=== PATIENT | female | born 1990 | race Caucasian/White ===

== ENCOUNTER 2018-07-06 11:59 | Emergency (ER) | END 2018-07-06 14:49 | disposition home or self-care (01) ==

== ENCOUNTER 2019-02-04 06:00 | Inpatient (IN) | payer OTHER ==
[~2019-02-04] VITALS: Ht 160 cm; Wt 128.0 kg
[~2019-02-04 06:00] MED LIST: ACET500C5 PO; HYDR250V5 IM; PREN-29 PO; PYRI25TA3 PO
[2019-02-04 06:27] VITALS: Ht 160 cm; Wt 128.0 kg
[2019-02-04 06:28] VITALS: BP 126/66; PULSE 89; RESP 18
[2019-02-04] MEDS ORDERED: CARBOPROST 250 MCG INJ IM PRN (06:30)
[2019-02-04] MEDS ORDERED: OXYTOCIN 30 UNITS/LR 500 ML IV PRN (06:30)
[2019-02-04] MEDS ORDERED: MISOPROSTOL 200 MCG TAB PR PRN ×2 (06:30→09:00)
[2019-02-04] MEDS ORDERED: CEFAZOLIN 3 GM in DEXTROSE 5% 100 ML IV ONE (06:30)
[2019-02-04] MEDS ORDERED: METHYLERGONOVINE 0.2 MG INJ IM PRN (06:30)
[2019-02-04] MEDS ORDERED: EPHEDrine 25 MG/5 ML SYG ONE (07:00)
[2019-02-04] MEDS ORDERED: morphine SULFATE/PF (10 MG/10 ML) INJ ONE (08:37)
[2019-02-04] MEDS ORDERED: LACTATED RINGER'S 1,000 ML IV SCH (08:39)
--- NOTE | 2019-02-04 08:39 | HP ---
Date/Time of Note Date/Time of Note DATE: 02/04/19 TIME: 08:30 OB - History Hx of Present Free Text/Dictation 28 YO with EDC 02/12/2019 with history of previous delivery, who desires to have repeat delivery and Permanent sterilization. I discussed with the patient the risks, benefits, indications, and alternatives of procedure including but not limited to risks of infection, bleeding, damage to other organs, bowel, bladder, hernia formation, scar formation, possibility of blood transfusion, possible need for emergency hysterectomy, as well as the fact that tubal ligation may fail and there is 1 to 2% risk of failure over lifetime of tubal ligations and the fact that tubal ligation is permanent and irreversible. She was allowed to ask questions. All her questions were answere d. Informed consent has been obtained. Care: None Ultrasounds: Normal mid trimester US Obstetrical Complications: None Medical Complications: None Past Family/Social History * Past Medical, Surgical, Family and Obstetric Histories reviewed from chart. OB Admission Exam Vital Signs Vital Signs Vital Signs Date Temp Pulse Resp B/P (MAP) Pulse Ox O2 O2 Flow FiO2 Time Delivery Rate 02/04/19 97.7 89 18 126/66 Room Air 06:28 (86) Physical Exam HEENT: WNL Heart: Rhythm Normal Lungs: Clear, Equal Abdomen: WNL Extremities: Normal Reflexes: Normal Last 72 hours Lab Results CBC & BMP 02/04/19 07:15 OB Assessment/Plan Other Assessment: IUP at 39 weeks H/o C/S x 3 Desires permanent sterilization Other plan: repeat c/s and bilateral salpingectomies EMILEE LYONS MD February 04, 2019 08:39
[2019-02-04] MEDS ORDERED: ONDANSETRON 4 MG INJ ONE (08:51)
[2019-02-04] MEDS ORDERED: LANOLIN HPA 1 PKT TOP PRN (09:00)
[2019-02-04] MEDS ORDERED: NA PHOSPHATE/BIPHOS 133 ML ENEMA PR PRN (09:00)
[2019-02-04] MEDS ORDERED: HYDROmorphONE 4 MG TAB PO PRN (09:00)
[2019-02-04] MEDS ORDERED: OXYTOCIN 10 UNIT INJ ONE ×2 (09:14→09:29)
[2019-02-04] MEDS ORDERED: MIDAZOLAM 1 MG/ML 2 ML INJ ONE (09:15)
--- NOTE | 2019-02-04 10:10 | PREAC ---
Date/Time of Note Date/Time of Note DATE: 02/04/19 TIME: 10:08 Anesthesia Eval and Record Evaluation Time Pre-Procedure Interview DATE: 02/04/19 TIME: 08:16 Age 28 Sex female NPO: 8 hrs Preoperative diagnosis iup @ 38 wks., , contractions, requests sterilization Planned procedure repeat c/s, btl Past Medical History Past Medical History: Includes : : (5), Para: (3), Gestational age: (38 wks.) Surgery & Anesthesia Issues No known issue Meds Anticoagulation: No Beta Sriram within 24 hr: No Reason Beta Sriram not given: Pt. not on B-Sriram Active Scripts Acetaminophen* (Tylophen*) 500 Mg Capsule, 1 CAP PO Q6H PRN for PAIN AND OR ELEVATED TEMP, #20 CAP Prov:CASANDRA MASTERS PA-C 07/06/18 Reported Medications Hydroxyprogesterone Caproate (Latisha) 250 Mg/1 Ml Vial, 250 MG IM, VIAL 04/05/15 Pyridoxine Hcl* (Vitamin B-6*) 25 Mg Tablet, 25 MG PO DAILY, TAB 04/05/15 Vit-Fe Fumarate-FA* (Danish Tablet*) 1 Tab Tablet, 1 TAB PO DA TONNY, TAB 04/05/15 Current Medications Oxytocin/Lactated Ringer's 500 ml @ 0 mls/hr ONCE PRN IV .VAGINAL BLEEDING; Start 02/04/19 at 06:30 Methylergonovine Maleate (Methergine) 0.2 mg ONCE PRN IM .VAGINAL BLEEDING; Start 02/04/19 at 06:30 Carboprost Tromethamine (Hemabate) 250 mcg ONCE PRN IM .VAGINAL BLEEDING; Start 02/04/19 at 06:30 Lactated Ringer's 1,000 ml @ 125 mls/hr Q8H IV ; Start 02/04/19 at 08:39; Stop 02/04/19 at 12:38 Ibuprofen (Motrin) 600 mg Q6 PO ; Start 02/04/19 at 12:00 Simethicone (Mylicon) 160 mg Q8H PRN PO .GAS; Start 02/04/19 at 09:00 Senna/Docusate Sodium (Senokot-S) 1 tab BID PO ; Start 02/04/19 at 09:00 Sodium Biphosphate/ Sodium Phosphate (Fleet Enema) 133 ml DAILY PRN IA .CONSTIPATION; Start 02/04/19 at 09:00 Lanolin (Lanolin Hpa) 1 applic BEDSIDE MEDICATION PRN TOP .NIPPLES; Start 02/04/19 at 09:00 Diphtheria/ Tetanus/Acell Pertussis (Adacel) 0.5 ml ONCE ONCE IM* ; Start 02/07/19 at 09:00; Stop 02/07/19 at 09:01 Measles/Mumps/ Rubella Vaccine Live (Mmr Ii Vaccine) 0.5 ml ONCE ONCE SC* ; Start 02/07/19 at 09:00; Stop 02/07/19 at 09:01 Misoprostol (Cytotec) 1,000 mcg ONCE PRN IA .VAGINAL BLEEDING; Start 02/04/19 at 09:00 Hydromorphone HCl (Dilaudid) 4 mg Q4H PRN PO SEVERE PAIN LEVEL 7-10; Start 02/04/19 at 09:00 Meds reviewed: Yes Allergies Coded Allergies: bee venom (honey bee) (Verified Allergy, Severe, 07/02/15) itchiness and difficulty breathing mushroom (Verified Allergy, Severe, 07/02/15) itchiness and can't breathe acetaminophen (Verified Allergy, Intermediate, PALPITATION, 07/02/15) ANXIETY hydrocodone (Verified Allergy, Intermediate, PALPITATION, 07/02/15) ANXIETY Allergies Reviewed: Yes Labs/Studies Labs Reviewed: Reviewed by anesthesiologist Result Diagram: 02/04/19 0715 Laboratory Tests 02/04/19 07:15 Blood Bank Test 02/04/19 07:15 Antibody Screen NEGATIVE Blood Type B POSITIVE Rh Immune Globulin Candidate NO test: Positive Studies: ECG (n/a), CXR (n/a) Pre-procedure Exam Last vitals Vital Signs Date Temp Pulse Resp B/P (MAP) Pulse Ox O2 O2 Flow FiO2 Time Delivery Rate 02/04/19 97.7 89 18 126/66 Room Air 06:28 (86) Airway: Adequate mouth opening, Adequate thyromental dist Mallampati: Mallampati II Teeth: Normal Lung: Normal Heart: Normal ASA Physical Status ASA physical status: 2 Emergency: E Planned Anesthetic General/MAC: MAC Neuraxial: Spinal Planned Pain Management Sub-arachniod narcotics, Local by surgeon Pre-operative Attestations Prior to commencing anesthesia and surgery, the patient was re-evaluated, there was verification of: *The patient's identity *The results of appropriate recent lab work and preoperative vital signs *The above evaluation not changing prior to induction *Anesthetic plan, risk benefits, alternative and complications discussed with patient/family; questions answered; patient/family understands, accepts and wishes to proceed. [employer] Intercept Controller used ALY DANIEL MD February 04, 2019 10:10
--- NOTE | 2019-02-04 10:11 | PAC ---
Date/Time of Note Date/Time of Note DATE: 02/04/19 TIME: 10:10 Post-Anesthesia Notes Post-Anesthesia Note Last documented vital signs Vital Signs Date Temp Pulse Resp B/P (MAP) Pulse Ox O2 O2 Flow FiO2 Time Delivery Rate 02/04/19 97.7 89 18 126/66 Room Air 06:28 (86) Activity: WNL Respiratory function: WNL Cardiovascular function: WNL Mental status: Baseline Pain reasonably controlled: Yes Hydration appropriate: Yes Nausea/Vomiting absent: Yes ALY DANIEL MD February 04, 2019 10:10
--- NOTE | 2019-02-04 10:13 | OPR ---
Date/Time of Note Date/Time of Note DATE: 02/04/19 TIME: 10:11 Operative Report Procedure Date: February 04, 2019 Preoperative Diagnosis IUP at 39 weeks h/o C/S x 3 Desires permanent sterilization Postoperative Diagnosis Same Operation/Procedure Performed Repeat delivery Bilateral distal salpingectomies Surgeon Lucinda Fry MD [employer] Consultant Dr. Pedroza Anesthesia Type: spinal Estimated Blood Loss: other (700 ml) Transfusion none Specimen distal segments of bilateral tubes Grafts/Implants none Tubes/Drains Erickson Cath Complications none Pt Condition Post Procedure: stable Disposition: PACU Procedure Description The risks, benefits, indications, alternatives of procedure including, but not limited to risk of infection, bleeding, damage to other organs, bowel, bladder, hernia formation, scar formation, possibility of blood transfusions, the risks of tubal ligation such as failure and future pregnancies were discussed with the patient. The fact that BTL is permanent and irreversible also discussed with patient. She was allowed to ask questions. All her questions were answered. Informed consent was obtained. DESCRIPTION OF PROCEDURE: She was taken to the operating room. Spinal anesthesia was induced. She was prepped and draped in the usual sterile fashion. Surgical time out one. Anesthesia was tested to be adequate. With permission from anesthesiologist, a knife was used to make a Pfannenstiel skin incision. The incision was taken down in layers. The fascia was cut, undermined and from the underlying muscle using sharp and blunt dissection. All the bleeders were cauterized. Peritoneum was entered bluntly. A low transverse incision was developed over the uterus. Amniotic fluid was clear and adequate. A viable in vertex presentation was delivered without any difficulty. The cord was clamped and cut, handed to awaiting team. Placenta was then d elivered. Uterus was exteriorized, wrapped around a moist lap. Inside uterus was cleaned using a dry lap. All residual membranes were removed. The uterine incision was then closed using #1 Monocryl in 2 layers. A 5 cm distal end of the right tube was ligated 3 times using 0 plain tie and the ligated portion was cut, sent to pathology. Same procedure was done on the contralateral side. The uterus was inserted back inside the abdominal cavity. Irrigation was done carefully. Careful evaluation of the uterine incision revealed no further bleeding. The tubal ligation sites were evaluated carefully. There was no bleeding. The peritoneum and rectus muscles and fascia were evaluated. All bleeders cauterized. Peritoneum was closed using 2-0 Monocryl. At this time, the count was correct. Rectus muscle was reapproximated using 2-0 Monocryl. Rectus fascia was closed using #1 Vicryl. Subcutaneous tissue was cleaned and irrigated. All bleeders cauterized and the skin closed using 4-0 Monocryl. All counts correct. LUCINDA FRY MD February 04, 2019 10:13
[2019-02-04] MEDS ORDERED: LACTATED RINGER'S 1,000 ML IV ONE (10:14)
[2019-02-04] MEDS ORDERED: MIDAZOLAM 1 MG/ML 2 ML INJ IV PRN (10:30)
[2019-02-04] MEDS ORDERED: ONDANSETRON 4 MG INJ IV PRN (10:30)
[2019-02-04] MEDS ORDERED: DIPHENHYDRAMINE 50 MG INJ IV PRN ×2 (10:30)
[2019-02-04] MEDS ORDERED: KETOROLAC 30 MG INJ IV PRN (10:30)
[2019-02-04] MEDS ORDERED: ZOLPIDEM 5 MG TAB PO PRN (10:30)
[2019-02-04] MEDS ORDERED: NALBUPHINE HCL (10 MG/1 ML) INJ IV PRN (10:30)
[2019-02-04] MEDS ORDERED: NALOXONE (0.4 MG/ML) INJ IV PRN ×2 (10:30)
[2019-02-04] MEDS ORDERED: HYDROmorphONE 0.5 MG/0.5 ML SYG IV PRN (10:30)
[2019-02-04] MEDS ORDERED: MEPERIDINE 25 MG INJ IV PRN (10:30)
[2019-02-04 14:10] VITALS: BP 141/68; RESP 16
[2019-02-04] MEDS: IBUPROFEN 600 MG TAB PO SCH ×2 (15:28→18:00)
[2019-02-04] MEDS: SENNA/DOCUSATE NA (8.6MG/50MG) TAB PO SCH ×2 (15:28→21:55)
[2019-02-04 16:27] VITALS: BP 105/50; PULSE 68; RESP 20
[2019-02-04 19:45] VITALS: BP 116/55; PULSE 82; RESP 17
[2019-02-05] MEDS ORDERED: LACTATED RINGER'S 1,000 ML IV SCH (01:30)
[2019-02-05 03:31] VITALS: BP 119/55; PULSE 86; RESP 18
--- NOTE | 2019-02-05 04:14 | OPPN ---
Date/Time of Note Date/Time of Note DATE: 02/05/19 TIME: 04:13 Anesthesia Follow up Anesthesia Follow up Last documented vital signs Vital Signs Date Temp Pulse Resp B/P (MAP) Pulse Ox O2 O2 Flow FiO2 Time Delivery Rate 02/05/19 98.0 86 18 119/55 97 Room Air 03:31 (76) Respiratory function: WNL Cardiovascular function: WNL Comments S: pt. is POD #1. min. bt. pain. min. n/v. min. need for bt. pain meds. ie. nsaids/opiates. ambulating. O: vss., afeb. A: min. bt. pain sec. to it mso4. P: no complications. ALY DANIEL MD February 05, 2019 04:14
[2019-02-05] MEDS: IBUPROFEN 600 MG TAB PO SCH ×5 (06:00→23:42)
[2019-02-05 08:00] VITALS: BP 115/60; PULSE 79; RESP 16
[2019-02-05] MEDS: SENNA/DOCUSATE NA (8.6MG/50MG) TAB PO SCH ×2 (09:16→20:35)
[2019-02-05 15:28] VITALS: BP 125/58; PULSE 83; RESP 19
--- NOTE | 2019-02-05 15:29 | QN ---
Documentation Comment Postop day #1 Status post repeat and BTL Patient stable and afebrile Vital signs stable VS - Last 72 Hours, by Label Date Temp Pulse Resp B/P (MAP) Pulse Ox O2 O2 Flow FiO2 Time Delivery Rate 02/05/19 98.3 79 16 115/60 Room Air 08:00 (78) 02/05/19 98.0 86 18 119/55 97 Room Air 03:31 (76) 02/04/19 98.0 82 17 116/55 97 Room Air 19:45 (75) 02/04/19 98.5 68 20 105/50 98 Room Air 16:27 (68) 02/04/19 97.9 16 141/68 98 Room Air 14:10 (92) 02/04/19 97.7 89 18 126/66 Room Air 06:28 (86) Hematology - 72 Hrs Test 02/04/19 07:15 02/05/19 06:33 Hematocrit 29.7 % (37.0-47.0) L 23.2 % (37.0-47.0) #L Hemoglobin 9.3 g/dl (12.0-16.0) L 7.5 g/dl (12.0-16.0) L Mean Corpuscular 26.1 pg (29.0-33.0) L 27.1 pg (29.0-33.0) L Hemoglobin Mean Corpuscular 31.3 g/dl (32.0-37.0) L 32.3 g/dl (32.0-37.0) Hemoglobin Concent Mean Corpuscular Volume 83.4 fl (82.0-101.0) 83.8 fl (82.0-101.0) Mean Platelet Volume 11.9 fl (7.4-10.4) H 11.4 fl (7.4-10.4) H Platelet Count 266 10^3/UL (140-415) 219 10^3/UL (140-415) Red Blood Count 3.56 10^6/ul (4.20-5.40) 2.77 10^6/ul (4.20-5.40) L #L Red Cell Distribution 13.1 % (11.5-14.5) 13.4 % (11.5-14.5) Width White Blood Count 6.5 10^3/ul (4.8-10.8) 7.7 10^3/ul (4.8-10.8) Abdomen soft, fundus firm Incision clean,dry,intact Extremities nontender Assessment and plan Patient stable and doing well Encouraged to ambulate CBC in a.m. Continue with routine postop care SUAD GRECO MD February 05, 2019 15:29
[2019-02-05 20:15] VITALS: BP 106/56; PULSE 86; RESP 18
[2019-02-05] MEDS ORDERED: KETOROLAC 30 MG INJ IM STA (20:21)
[2019-02-06 04:10] VITALS: BP 115/50; PULSE 70; RESP 18
[2019-02-06] MEDS: IBUPROFEN 600 MG TAB PO SCH ×3 (05:44→17:45)
[2019-02-06 08:00] VITALS: BP 125/87; PULSE 87; RESP 18
[2019-02-06] MEDS: SENNA/DOCUSATE NA (8.6MG/50MG) TAB PO SCH ×2 (08:08→21:00)
[2019-02-06] MEDS: traMADol 50 MG TAB PO PRN (09:54)
[2019-02-06] MEDS: FERROUS SULFATE (EC) 325 MG TAB PO SCH ×2 (13:18→22:06)
[2019-02-06 16:34] VITALS: BP 117/52; PULSE 83; RESP 18
[2019-02-06 20:50] VITALS: BP 112/60; PULSE 78; RESP 19
--- NOTE | 2019-02-06 22:46 | DS ---
Date/Time of Note Date/Time of Note DATE: 02/06/19 TIME: 22:45 Obstetrical Discharge Record Final Diagnosis Final Diagnosis: Term delivered Vaginal Delivery Obstetrical Delivery: Bilateral Tubal Ligation Section Section: Repeat Complications Augmentation: No Induction: No Rupture of Membranes: No Condition on Discharge Physical Assessment Voiding: Yes Bowel Movement: Yes Breast: Soft, non-tender, Filling Fundus: Firm Abdomen and Incision: soft, appropriate tender, incision is intact and no sign of infection Calf Tenderness: No Patient Condition: Good EMILEE LYONS MD February 06, 2019 22:46
[2019-02-07] MEDS: IBUPROFEN 600 MG TAB PO SCH ×3 (00:49→12:17)
[2019-02-07 04:00] VITALS: BP 107/50; PULSE 66; RESP 18
[2019-02-07] MEDS: FERROUS SULFATE (EC) 325 MG TAB PO SCH ×2 (08:54→12:17)
[2019-02-07] MEDS: SENNA/DOCUSATE NA (8.6MG/50MG) TAB PO SCH (08:54)
[2019-02-07 08:55] VITALS: BP 128/80; PULSE 85; RESP 18
[2019-02-07] MEDS: traMADol 50 MG TAB PO PRN (08:55)
[2019-02-07] MEDS ORDERED: MEASLES,MUMPS,RUBELLA VACCINE INJ SC* ONE (09:00)
[2019-02-07] MEDS ORDERED: DIPHTH/TET/ACEL PERTUSS (ADULT) 0.5 ML VIAL IM* ONE (09:00)
--- NOTE | 2019-02-08 17:08 | DELSUM ---
Delivery Summary A-C Datetime Report Generated by CPN: 02/08/2019 17:08 DELIVERY PERSONNEL Deputy County Clerk: Jim, Ana María MATERNAL INFORMATION Delivery Anesthesia: Epidural Medications in Delivery: SEE ANESTHESIA NOTE Delivery QBL (ml): 700 Placenta Cultured: No Maternal Complications: None LABOR SUMMARY EDC: 02/12/2019 00:00 No. Babies in Womb: 1 Attempted: No Labor Anesthesia: None LABOR INFORMATION Reason for Induction: Not Applicable Oxytocin: N/A Group B Beta Strep: Negative Antibiotics # of Doses: 1 Antibiotics Time of Last Dose: 02/04/2019 09:05 Steroids Given: None Reason Steroids Not Administered: Not Applicable MEMBRANES Membranes Rupture Method: Artificial Rupture of Membranes: 02/04/2019 09:09 Length of Rupture (hr): 0.05 Amniotic Fluid Color: Clear Amniotic Fluid Amount: Moderate Amniotic Fluid Odor: None STAGES OF LABOR Stage 3 hr: 0 Stage 3 min: 1 CSECTION DELIVERY Primary Indication: Repeat Elective Secondary Indication: Repeat Elective CSection Urgency: Elective CSection Incidence: Repeat Labor: No Labor Elective: Elective CSection Incision: Lower Uterine Transverse Sterilization Procedure: Mayra BABY A INFORMATION Infant Delivery Date/Time: 02/04/2019 09:12 Method of Delivery: Born in Route : No : N/A Forceps: N/A Vacuum Extraction: N/A Shoulder Dystocia : N/A SHOULDER DYSTOCIA BABY A Infant Delivery Date/Time: 02/04/2019 09:12 PRESENTATION/POSITION BABY A Presentation: Cephalic Cephalic Presentation: Vertex Vertex Position: Left Occipital Anterior Breech Presentation: N/A PLACENTA INFORMATION BABY A Placenta Delivery Time : 02/04/2019 09:13 Placenta Method of Delivery: Manual Removal Placenta Status: Delivered SCORES BABY A Heart Rate 1 min: >100 bpm Resp Effort 1 min: Good Cry Reflex Irritability 1 min: Cough/Sneeze/Pulls Away Muscle Tone 1 min: Active Motion Color 1 min: Body [place], Extremit Blue Resuscitation Effort 1 min: Tactile Stimulation SCORE 1 MIN: 9 Heart Rate 5 min: >100 bpm Resp Effort 5 min: Good Cry Reflex Irritability 5 min: Cough/Sneeze/Pulls Away Muscle Tone 5 min: Active Motion Color 5 min: Body [place], Extremit Blue Resuscitation Effort 5 min: Tactile Stimulation SCORE 5 MIN: 9 INFORMATION BABY A Gestational Age at Delivery: 38.6 Gestational Status: Early Term- 37- 38.6 Weeks Infant Outcome : Liveborn Condition : Stable Sex: Male IDENTIFICATION/MEDS BABY A ID Band Number: [id number] ID Band Location: Right Leg; Left Arm Sensor Applied: Yes Sensor Number: [id number] Sensor Location : Cord Clamp Vitamin K Given : Not Given Erythromycin Given: Not Given WEIGHT/LENGTH BABY A Infant Birthweight (gm): 3480 Weight (lb): 7 Infant Weight (oz): 11 Infant Length (in): 19.75 Length (cm): 50.17 CORD INFORMATION BABY A No. Cord Vessels: 3 Nuchal Cord : N/A Cord Blood Taken: Yes Suction: Mouth; Nose ASSESSMENT BABY A Infant Complications: None Physical Findings at Delivery: Within Normal Limits Infant Respirations: Appears Normal Field Counsel/ALS Called : Yes Infant Care By: NIKUNJ Moya Transferred To: Remains with Mother
== END 2019-02-07 15:00 | disposition home or self-care (01) | DRG 785 ==
LOC: L-D 06:00 → PP1 14:34
PROVIDERS: ADMIT Specialist; ATTEND Specialist
PROC: 0UB70ZZ Excision of Bilateral Fallopian Tubes, Open Approach (ICD-10-PCS; 2019-02-04)
PROC: 10D00Z1 Extraction of Products of Conception, Low, Open Approach (ICD-10-PCS; principal; 2019-02-04 08:00)
DX: O34.211 Maternal care for low transverse scar from previous cesarean delivery (principal); Z3A.39 39 weeks gestation of pregnancy; Z37.0 Single live birth; Z30.2 Encounter for sterilization
CPT/HCPCS: 85025; 85610; 85730; 86592; 86850; 86900; 86901; 87340; 88302; 99464; J0690; J1200; J1885; J2250; J2274; J2405; J2590; J7120